=== PATIENT | female | born 1930 | race Caucasian/White ===

== ENCOUNTER 2016-07-03 10:17 | Inpatient (IN) | payer MEDICARE ==
[2016-07-03 10:49] LABS: ABSOLUTE NEUTROPHIL COUNT 3.2 K/mm3 (1.8-7.7); BASO % 0.2 % (0.2-1.0); EOS % 0.8 % (0.9-2.9); HEMATOCRIT 28.8 % (37.0-47.0); HEMOGLOBIN 10.5 gm/l (12.0-16.0); IMM NEUT% 0.4 % (0-1); LYMPH # 1.5 (1.0-4.8); MEAN CELL VOLUME 85.2 fl (81.0-99.0); MEAN CORPUSCULAR HEMOGLOBIN 31.1 pg (27.0-31.0); MEAN CORPUSCULAR HGB CONC 36.5 g/dl (33.0-37.0); MEAN PLATELET VOLUME 10.2 fl (7.4-10.4); MONO # 0.4 (0.0-0.8); MONO % 7.7 % (4-12); NEUT % 61.9 % (43-75); PLATELET COUNT 237 K/mm3 (130-400); RED CELL DISTRIBUTION WIDTH 11.8 % (11.5-14.5)
[2016-07-03 11:09] LABS: ALBUMIN 3.6 gm/dL (3.5-5.7); CALCIUM 7.9 mg/dL (8.6-10.3)
[2016-07-03 11:32] LABS: PH,URINE 6.5 (5.0-8.0); SPECIFIC GRAVITY 1.015 (1.001-1.030); URINE BILIRUBIN NEGATIVE (NEGATIVE); URINE BLOOD 3+ (NEGATIVE); URINE GLUCOSE (UA) NEGATIVE (NEGATIVE); URINE LEUKOCYTE ESTERASE TRACE (NEGATIVE); URINE NITRITE POSITIVE (NEGATIVE); URINE PROTEIN 1+ (NEGATIVE); URINE UROBILINOGEN NORMAL (0-1 mg/dl)
[2016-07-03 11:33] LABS: URINE APPEARANCE HAZY; URINE COLOR YELLOW
[2016-07-03 11:45] LABS: URINE BACTERIA FEW; URINE WBC 0-2 /hpf
[2016-07-03] MEDS ORDERED: [UNRECOGNIZED DRUG - OTHER] IV SCH (14:00)
[2016-07-03] MEDS ORDERED: D5NS with 20mEq KCL 1,000 ML IV SCH (14:00)
[2016-07-03] MEDS ORDERED: PUMP TUBING ONE ×2 (14:19→15:13)
[2016-07-03] MEDS ORDERED: SODIUM CHLORIDE 0.9% FLUSH 10 ML ONE (14:36)
[2016-07-03] MEDS ORDERED: IV START KIT ONE (14:36)
[2016-07-03] MEDS ORDERED: BLISTEX LIPSTICK 1 EACH TP PRN (15:27)
[2016-07-03] MEDS ORDERED: SODIUM CHLORIDE 0.9% 100 ML IV PRN (15:27)
[2016-07-03] MEDS ORDERED: MAGNESIUM HYDROXIDE 30 ML UDCUP PO PRN (15:27)
[2016-07-03] MEDS ORDERED: ACETAMINOPHEN 325 MG TABLET PO PRN (15:27)
[2016-07-03] MEDS ORDERED: MENTHOL/CETYLPYRD 1 EACH LOZENGE PO PRN (15:27)
[2016-07-03] MEDS ORDERED: BISACODYL 5 MG TABLET.EC PO PRN (15:27)
[2016-07-03] MEDS ORDERED: BISACODYL 10 MG SUP PR PRN (15:27)
[2016-07-03] MEDS ORDERED: MAGNESIUM HYDROXIDE/AL HYDROX 30 ML UDCUP PO PRN (15:42)
[2016-07-03] MEDS ORDERED: CYCLOBENZAPRINE HCL 10 MG TABLET PO PRN (15:42)
[2016-07-03] MEDS ORDERED: ERYTHROMYCIN OPHTH OINT 0.5% 1 APPLIC/TUBE OU PRN (15:45)
[2016-07-03 15:49] VITALS: BMI 23.9
[2016-07-03] MEDS: ENOXAPARIN SODIUM 40 MG/0.4 ML SYRINGE SUB-Q SCH (16:26)
[2016-07-03] MEDS: LEVOFLOXACIN 250MG/D5W 50ML 250 MG in Premix (D5W) 50 ml 1 EACH IV SCH (16:26)
[2016-07-03] MEDS ORDERED: [UNRECOGNIZED DRUG - OTHER] PO SCH (17:00)
[2016-07-03] MEDS ORDERED: ATROP PO SCH (17:00)
--- NOTE | 2016-07-03 17:37 | HP ---
GADIEL FUNEZ [id number] DATE OF ADMISSION: July 03, 2016 CHIEF COMPLAINT: Weakness. HISTORY OF PRESENT ILLNESS: The patient is an 86-year-old female with a history of recurrent hyponatremia who has some difficulty giving history. She recently she was seen last for some decreased strength, weakness, and possible urinary tract infection. She had a urinalysis done which ultimately showed Klebsiella pneumoniae and she had a sodium done which showed a result of 132 on June 30, 2016. She had undergone a previous chest CT as well on June 26, 2016 showing stable appearance of the lungs compared to January 08, 2016, a 6.1 mm sub-solid nodule in the right lower lobe along with bilateral pulmonary scarring. Differential diagnoses include low-grade inflammatory lesion versus less likely adenocarcinoma. Interval resolution of bilateral pleural effusions and osteoporosis with old compression fractures of T11 and T 7. She was started on Bactrim this week which coincidentally she had been on prior to a previous hospitalization for hyponatremia. She experienced worsened weakness, so was brought to [facility] where her sodium was noted to be 113, a marked drop from 132 on June 30, 2016, three days prior. She has had several previous hospitalizations for hyponatremia, last being as low as 110 on January 08, 2016. 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 She is unable to swallow the pills whole, so takes them with applesauce and does not care for the taste of this. PAST MEDICAL HISTORY: Remarkable for: 1. Hypothyroidism. 2. Pituitary adenoma with partial removal in 2004. 3. History of glaucoma. 4. Macular degeneration. 5. Chronic intermittent diarrhea with intolerance to many foods. 6. Dyslipidemia. 7. Hyponatremia, episodic. 8. Scalp lacerations in the past in the summer of 2015. 9. History of recurrent urinary retention with Angelo placed in the summer. She was supposed to see Dr. Darnell for a voiding trial, but so far has continued with chronic catheterization. 10. Previous T11 and T7 compression fractures. 11. She also describes having some wrist swelling last month and had x-ray and ultrasound and CT which did not give an answer regarding this. PAST SURGICAL HISTORY: Remarkable for: 1. L5 laminectomy. 2. Cholecystectomy. 3. Left knee arthroplasty. She reports she now wishes she had the other knee done as well. 4. Pituitary tumor surgery in 2004. 5. Cataract surgery. 6. Macular degeneration. 7. Appendectomy. 8. Skin cancers. ALLERGIES: 1. AMOXICILLIN. 2. PENICILLIN. 3. MULTIPLE FOOD ALLERGIES INCLUDING CORN AND CORN STARCH, PEANUTS, SOY, TREE NUTS, WHEAT, DAIRY AND SESAME SEEDS. 4. POSSIBLY SULFA ANTIBIOTICS. MEDICATIONS: 1. Acetaminophen 650 mg orally every six hours as needed. 2. Alendronate 70 mg orally weekly although she states she has not taken this more recently. 3. Amphojel as needed. 4. Combigan eyedrops one drop in both eyes twice daily. 5. Calcium carbonate 500 mg orally twice daily. 6. Cevimeline 30 mg orally twice daily. 7. Cholestyramine 4 gr orally twice daily. 8. Flexeril 5 mg orally three times daily as needed. 9. Lomotil one pill four times daily as needed. 10. Erythromycin optic ointment 0.5% as needed. 11. Xalatan 0.005% one drop both eyes at bedtime. 12. Levothyroxine 25 mcg orally in the morning. 13. Lovastatin 20 mg orally at bedtime. 14. Melatonin 10 mg orally at bedtime. 15. Move-Free one tablet orally daily. 16. Pilocarpine one to two drops both eyes three times daily. 17. Sodium chloride 2 gr orally daily. 18. She has been on Bactrim just recently. SOCIAL HISTORY: She lives independently at [facility]. She has a Home Health nurse who checks on her catheter twice a week. Granddaughter works at the [employer]. She is . DO NOT RESUSCITATE status. No smoking, no drinking. She is Yazidi but is currently not going to [facility] due to difficulty getting around. FAMILY HISTORY: Father at age 82 of cancer. Mom at 36 of childbirth. REVIEW OF SYSTEMS: Eyes have been okay. She does have some dry mouth and takes medicine for this. Ears, have been okay. Nose has been okay. Mouth, okay. Teeth are okay. Neck, okay. She has had a scab like irritation that has been persisting on the top of her scalp since last summer with crusting noted. She has had some stiffness and soreness of her neck. Her lungs have been okay. She had a CT done which had shown a possible lung mass, but it appears to be stable from previous on the CT done June 26, 2016. Heart, no complaints. Stomach, she has nausea and gagging and frequent loose stools. She was diagnosed with a urinary tract infection recently which had shown Klebsiella pneumoniae sensitive to most drugs tested. She notes her knee hurts. Her arms have been okay. She has had just some general weakness. She had some memory difficulties and reports she can forget where she was when she was talking. PHYSICAL EXAM: GENERAL: Slightly tired appearing female, slightly pale, cooperative and pleasant. Her family reports that she is not as bad as she had been the last time she was hospitalized here. VITAL SIGNS: Her weight is 53.7 kilogram. Temperature 97.9, pulse 63, blood pressure 141/67, respirations 17, 95% saturations on room air. HEAD: Head is normocephalic. Two different areas of some dried mattering and scab-like formation suggestive of some chronic irritation on the scalp. EYES: Are unremarkable. EARS: Are normal bilaterally. NOSE: Is normal. MOUTH: Oropharynx is unremarkable. NECK: Is supple, no adenopathy or jugular venous distension noted. LUNGS: Generally clear to auscultation bilaterally. HEART: Regular rate and rhythm. ABDOMEN: Soft, bowel sounds are normal. There is no rebound or tenderness, no masses. Mild kyphosis noted. Abdomen is nontender. BREAST: Exam is deferred. GENITOURINARY: Exam is deferred. EXTREMITIES: Lower extremities without significant edema. Feet grossly unremarkable. Wrists are unremarkable. NEUROLOGIC: Cranial nerves are intact and symmetric. She is somewhat slow to follow commands such as finger to nose. Gait is not tested. She is oriented to within one day guessing July 04, 2016 and oriented to location. Speech is otherwise fluent. LABORATORY: Her labs show a white blood cell count of 5.2, hemoglobin 10.5, platelets 237. Chemistry profile, sodium 113 which is down from just three days ago when it was 132 on June 30, 2016. Potassium is 3.5, chloride 81, CO2 28, BUN 12, anion gap 8, creatinine 0.8, glucose 85, calcium 7.9, bilirubin 0.8, AST 39, ALT 35, alkaline phosphatase 84, troponin less than 0.01, albumin 3.6, globulin 3.6, lipase 36. Urinalysis shows 1+ protein, 2+ ketones, 3+ blood, 5 to 10 red cells, 0 to 2 white cells, 1 to 3 epithelial cells, few bacteria. IMAGING: Done at this time, none. The CT of the chest done on June 26, 2016 was as above. ELECTROCARDIOGRAM: Electrocardiogram shows sinus versus junctional bradycardia, 56 beats per minute, left anterior fascicular block suggested with leftward axis. QRS is 121, QTc is 467, axis is -50. Left ventricular hypertrophy suggested. ASSESSMENT AND PLAN: 1. Severe symptomatic hyponatremia, acute, with a sodium 113 today when it had been 132 on June 30, 2016. It had also been previously checked in mid May at 133. She has had previous testing for cortisol which was normal. Previous TSH was normal. Volume appears to be euvolemic. Patient has also had evaluation at [facility] previously and did not have any other addressable causes. Patient had been managed on oral sodium supplementation but had been tapering down on this. She does have a finding on the CT of her chest but this has been stable. She previously had Bactrim associated with this which would raise this as a consideration. We will be giving a dose of hypertonic saline at this time and closely monitoring. Anticipate resumption of her previous dose of oral sodium chloride and will be holding on desmopressin at this time, but if significant diuresis, will consider adding this. 2. Urinary tract infection with Klebsiella pneumoniae sensitive to most drugs tested. Anticipate use of Levaquin. 3. History of urinary retention. We will try a voiding trial later today, and replace the catheter if need be. 4. Abnormal CT of chest, appearing stable. Uncertain role in hyponatremia, but some lung masses can be associated with hyponatremia. 5. Hypothyroidism. Continue on levothyroxine. 6. With scalp crusting, suspect low-grade infection. Consider use of oil to help relieve crusting and evaluate underlying skin. 7. History of previous pituitary mass status post surgery, stable on CT done previously. Last CT of head done December 11, 2015. 8. DO NOT RESUSCITATE status. This is ordered. 9. Venous thrombosis prophylaxis. Anticipate the use of Lovenox. 10. History of chronic diarrhea of many food allergies, not otherwise addressed today. cc: Bhaskar Sebastien Bal M.D.
[2016-07-03] MEDS: ONDANSETRON 4 MG/2ML 2 ML VIAL IV PRN (19:08)
[2016-07-03] MEDS: SODIUM CHLORIDE 1 G TABLET PO SCH ×2 (19:29→21:45)
[2016-07-03] MEDS ORDERED: [UNRECOGNIZED DRUG - OTHER] PO PRN (19:39)
[2016-07-03] MEDS ORDERED: ATROP PO PRN (19:39)
[2016-07-03] MEDS: CALCIUM CARBONATE 500 MG TAB.CHEW PO SCH (21:44)
[2016-07-03] MEDS: CEVIMELINE HCL 30 MG CAPSULE PO SCH (21:44)
[2016-07-03] MEDS: MELATONIN 3 MG TABLET PO SCH (21:45)
[2016-07-03] MEDS: LOVASTATIN 20 MG TABLET PO SCH (21:45)
[2016-07-03] MEDS: DOCUSATE SODIUM 100 MG CAPSULE PO SCH (21:49)
[2016-07-03 21:54] LABS: I-STAT CREATININE 0.8 mg/dL (0.6-1.3)
[2016-07-03] MEDS: Brimonidine Tartrate/Timolol [Combigan 0.2%-0.5% Eye Drops] OU SCH (22:01)
[2016-07-03] MEDS: PILOCARPINE HCL OU SCH (22:20)
[2016-07-03] MEDS: LATANOPROST 0.005% 50 GTTS/2.5 ML BOT SOLN.DROP OU SCH (22:48)
[2016-07-03 23:08] LABS: CALCIUM 8.1 mg/dL (8.6-10.3)
[2016-07-04 00:51] LABS: CALCIUM 8.1 mg/dL (8.6-10.3)
[2016-07-04 05:45] LABS: ABSOLUTE NEUTROPHIL COUNT 3.8 K/mm3 (1.8-7.7); BASO % 0.5 % (0.2-1.0); EOS # 0.1 (0.0-0.5); EOS % 0.9 % (0.9-2.9); HEMATOCRIT 31.5 % (37.0-47.0); HEMOGLOBIN 11.3 gm/l (12.0-16.0); IMM NEUT% 0.5 % (0-1); LYMPH # 1.7 (1.0-4.8); LYMPH % 26.8 % (15-45); MEAN CELL VOLUME 84.7 fl (81.0-99.0); MEAN CORPUSCULAR HEMOGLOBIN 30.4 pg (27.0-31.0); MEAN CORPUSCULAR HGB CONC 35.9 g/dl (33.0-37.0); MEAN PLATELET VOLUME 11.4 fl (7.4-10.4); MONO # 0.8 (0.0-0.8); MONO % 12.2 % (4-12); NEUT % 59.1 % (43-75); RED CELL DISTRIBUTION WIDTH 11.9 % (11.5-14.5)
[2016-07-04 05:57] LABS: CALCIUM 8.6 mg/dL (8.6-10.3)
[2016-07-04 06:46] LABS: PLATELET COUNT 166 K/mm3 (130-400)
[2016-07-04] MEDS: LEVOTHYROXINE SODIUM 25 MCG TABLET PO SCH (07:46)
[2016-07-04] MEDS ORDERED: MOVE FREE PO SCH (09:00)
[2016-07-04] MEDS: CEVIMELINE HCL 30 MG CAPSULE PO SCH ×2 (10:05→21:10)
[2016-07-04] MEDS: DOCUSATE SODIUM 100 MG CAPSULE PO SCH ×2 (10:06→21:07)
[2016-07-04] MEDS: CALCIUM CARBONATE 500 MG TAB.CHEW PO SCH ×2 (10:07→21:07)
[2016-07-04] MEDS: Brimonidine Tartrate/Timolol [Combigan 0.2%-0.5% Eye Drops] OU SCH ×2 (10:08→21:06)
[2016-07-04] MEDS: PILOCARPINE HCL OU SCH ×3 (10:08→21:05)
--- NOTE | 2016-07-04 13:22 | PDOC43 ---
- Subjective Chief Complaint: weakness Patient reports feeling better today. Did eat a little. Walked some with PT, did ok, 40-50'. Required replacement of catheter due to retention (700 ml on PVR ). - Objective Vital Signs Temperature 98.1 F 07/04/16 07:32 Pulse Rate 61 07/04/16 11:27 Respiratory Rate 18 07/04/16 11:28 Blood Pressure 152/60 07/04/16 11:27 O2 Saturation by Pulse Oximetry 96 07/04/16 11:27 Oxygen Delivery Method Room Air Oxygen Flow Rate 0 Vital Signs Last 12 Hours Temp Pulse Resp BP Pulse Ox 07/04/16 11:28 18 07/04/16 11:27 61 18 152/60 96 07/04/16 07:32 98.1 F 58 16 147/60 98 07/04/16 07:30 16 07/04/16 05:00 15 07/04/16 03:04 52 15 122/43 96 07/04/16 02:39 51 14 104/46 98 07/04/16 01:00 20 Intake and Output 07/02/16 07/03/16 07/04/16 23:59 23:59 23:59 Intake Total 794 120 Output Total 320 775 Balance 474 -655 General: Alert, Cooperative, No Acute Distress HEENT: Atraumatic Lungs: Clear to Auscultation Bilaterally, Normal Air Movement Cardiovascular: Other (mostly RRR, sinus matias, PACs.) Abdomen: Soft, Normal Bowel Sounds, Non-Distended Extremities: No Edema Skin: Normal Color (seems better today.) Neurological: Normal Speech (better, more alert.) Psych/Mental Status: Normal Affect Laboratory 07/04/16 05:15 07/04/16 05:15 07/04/16 07/04/16 07/03/16 05:15 00:03 21:20 RBC 3.72 L VBG Total CO2 20 L Calcium 8.1 L 8.1 L Ionized Calcium 1.09 L Laboratory Tests 07/03/16 07/03/16 07/04/16 10:35 21:20 00:03 Sodium 113 L* D 114 L* 116 L* 07/04/16 05:15 Sodium 118 L* Current Medications: Current meds reviewed in EMR. Active Medications Acetaminophen (Tylenol) 650 mg PO Q6H PRN PRN Reason: Pain or Temperature > 100.5 F Al Hydroxide/Mg Hydroxide (Maalox) 15 - 30 ml PO Q4H PRN PRN Reason: GI upset Benzocaine/Menthol (Cepacol) 1 each PO PRN PRN PRN Reason: Sore Throat Bisacodyl (Dulcolax) 10 mg [place] DAILY PRN PRN Reason: Constipation Bisacodyl (Dulcolax) 5 mg PO DAILY PRN PRN Reason: Constipation Calcium Carbonate/Glycine (Tums) 500 mg PO BID [facility] Last Admin: 07/04/16 10:07 Dose: 500 mg Cevimeline HCl (Evoxac) 30 mg PO BID [facility] Last Admin: 07/04/16 10:05 Dose: Not Given Cyclobenzaprine HCl (Flexeril) 5 mg PO TID PRN PRN Reason: Muscle spasm Diphenoxylate HCl/Atropine (Lomotil) 1 each PO QID PRN PRN Reason: Diarrhea Docusate Sodium (Colace) 100 mg PO BID [facility] Last Admin: 07/04/16 10:06 Dose: Not Given Enoxaparin Sodium (Lovenox) 40 mg SUB-Q Q24H [facility] Last Admin: 07/03/16 16:26 Dose: 40 mg Erythromycin (Erythromycin Ophth Oint 0.5%) 1 applic OU PRN PRN Sodium Chloride (Sodium Chloride 0.9%) 100 mls @ 25 mls/hr IV PRN PRN PRN Reason: Flush Levofloxacin/Dextrose 250 mg/ (Premix (D5W) 50 ml) 50 mls @ 50 mls/hr IV Q24H [facility] Last Admin: 07/03/16 16:26 Dose: 50 mls/hr Latanoprost (Xalatan) 1 gtts OU BEDTIME [facility] Last Admin: 07/03/16 22:48 Dose: 1 gtts Levothyroxine Sodium (Levothroid) 25 mcg PO QAMAC [facility] Last Admin: 07/04/16 07:46 Dose: 25 mcg Lovastatin (Mevacor) 20 mg PO BEDTIME [facility] Last Admin: 07/03/16 21:45 Dose: 20 mg Melatonin (Melatonin) 9 mg PO BEDTIME [facility] Last Admin: 07/03/16 21:45 Dose: 9 mg Miscellaneous (Brimonidine Tartrate/Timolol [Combigan 0.2%-0.5% Eye Drops]) 1 gtts OU BID [facility] Last Admin: 07/04/16 10:08 Dose: 1 gtts Miscellaneous (Move Free) 1 tab PO DAILY [facility] Miscellaneous (Pilocarpine Hcl [Isopto Carpine 1% Ophth Solution]) 1 - 2 gtts OU TID [facility] Last Admin: 07/04/16 10:08 Dose: 1 gtts Ondansetron HCl (Zofran) 4 mg IV Q4H PRN PRN Reason: Nausea/Vomiting Last Admin: 07/03/16 19:08 Dose: 4 mg Petrolatum/Paraffin/Mineral Oil (Blistex) 1 each TP PRN PRN PRN Reason: Dry and/or chapped lips Sodium Chloride (Normal Saline 10ml Flush) 10 ml IV Q8HR [facility] Last Admin: 07/04/16 10:06 Dose: 10 ml Sodium Chloride (Normal Saline 10ml Flush) 10 ml IV PRN PRN Last Admin: 07/03/16 22:48 Dose: 10 ml - Problems: Assessment/Plan (1) Hyponatremia Status: Acute Assessment/Plan: Recurrent, 130 Sunday ->113 yest ->118 today Got 50 ml of 3% conc saline. Continue on PO NaCl, appreciate PT/OT (2) Anemia Qualifiers: Anemia type: unspecified type Qualifier Code: (D64.9) Anemia, unspecified Status: Suspected Assessment/Plan: Check iron levels. (3) UTI (urinary tract infection), bacterial Status: Acute Assessment/Plan: On Levaquin for Citrobacter and Klebsiella, both should be sensitive. Previous tx with Bactrim was associated with at least one other episode of hyponatremia. (4) Urinary retention Status: Acute Assessment/Plan: Chronic Angelo, changed. VTE Prophylaxis: enoxaparin Disposition: anticipate going to med/surg today.
[2016-07-04] MEDS ORDERED: PUMP TUBING ONE (15:32)
[2016-07-04] MEDS: SODIUM CHLORIDE 1 G TABLET PO SCH ×3 (15:52→23:21)
[2016-07-04] MEDS: LEVOFLOXACIN 250MG/D5W 50ML 250 MG in Premix (D5W) 50 ml 1 EACH IV SCH (15:52)
[2016-07-04] MEDS: ENOXAPARIN SODIUM 40 MG/0.4 ML SYRINGE SUB-Q SCH (15:53)
[2016-07-04 17:38] LABS: ABSOLUTE NEUTROPHIL COUNT 3.6 K/mm3 (1.8-7.7); BASO % 0.3 % (0.2-1.0); EOS # 0.1 (0.0-0.5); EOS % 1.2 % (0.9-2.9); HEMATOCRIT 34.2 % (37.0-47.0); HEMOGLOBIN 11.7 gm/l (12.0-16.0); IMM NEUT% 0.5 % (0-1); LYMPH # 1.4 (1.0-4.8); LYMPH % 23.4 % (15-45); MEAN CELL VOLUME 88.6 fl (81.0-99.0); MEAN CORPUSCULAR HEMOGLOBIN 30.3 pg (27.0-31.0); MEAN CORPUSCULAR HGB CONC 34.2 g/dl (33.0-37.0); MEAN PLATELET VOLUME 10.9 fl (7.4-10.4); MONO # 0.7 (0.0-0.8); MONO % 11.8 % (4-12); NEUT % 62.8 % (43-75); PLATELET COUNT 175 K/mm3 (130-400); RED CELL DISTRIBUTION WIDTH 12.2 % (11.5-14.5)
[2016-07-04 18:48] LABS: CALCIUM 8.6 mg/dL (8.6-10.3)
[2016-07-04] MEDS: LOVASTATIN 20 MG TABLET PO SCH (21:07)
[2016-07-04] MEDS: LATANOPROST 0.005% 50 GTTS/2.5 ML BOT SOLN.DROP OU SCH (21:09)
[2016-07-04] MEDS: MELATONIN 3 MG TABLET PO SCH (22:12)
[2016-07-04] MEDS: ONDANSETRON 4 MG/2ML 2 ML VIAL IV PRN (23:11)
[2016-07-05 06:14] LABS: ABSOLUTE NEUTROPHIL COUNT 3.7 K/mm3 (1.8-7.7); BASO % 0.2 % (0.2-1.0); EOS % 0.4 % (0.9-2.9); HEMATOCRIT 34.9 % (37.0-47.0); HEMOGLOBIN 11.9 gm/l (12.0-16.0); IMM NEUT% 0.4 % (0-1); LYMPH # 0.9 (1.0-4.8); MEAN CORPUSCULAR HEMOGLOBIN 30.4 pg (27.0-31.0); MEAN CORPUSCULAR HGB CONC 34.1 g/dl (33.0-37.0); MEAN PLATELET VOLUME 10.6 fl (7.4-10.4); MONO # 0.6 (0.0-0.8); MONO % 11.3 % (4-12); NEUT % 70.7 % (43-75); PLATELET COUNT 206 K/mm3 (130-400); RED CELL DISTRIBUTION WIDTH 12.6 % (11.5-14.5)
[2016-07-05 06:28] LABS: IRON 80 ug/dL (50-212); TOTAL IRON BINDING CAPACITY 256 ug/dL (261-478); TRANSFERRIN 183 mg/dL (203-362)
[2016-07-05 06:30] LABS: CALCIUM 8.9 mg/dL (8.6-10.3)
[2016-07-05] MEDS: LEVOTHYROXINE SODIUM 25 MCG TABLET PO SCH (07:35)
[2016-07-05] MEDS: SODIUM CHLORIDE 1 G TABLET PO SCH ×4 (07:37→20:12)
[2016-07-05] MEDS: CALCIUM CARBONATE 500 MG TAB.CHEW PO SCH ×2 (08:38→20:12)
[2016-07-05] MEDS: DOCUSATE SODIUM 100 MG CAPSULE PO SCH ×2 (08:38→20:13)
[2016-07-05] MEDS: Brimonidine Tartrate/Timolol [Combigan 0.2%-0.5% Eye Drops] OU SCH ×2 (08:42→20:11)
[2016-07-05] MEDS: PILOCARPINE HCL OU SCH ×3 (08:42→20:11)
[2016-07-05] MEDS: CEVIMELINE HCL 30 MG CAPSULE PO SCH (10:21)
[2016-07-05] MEDS ORDERED: CEVIMELINE HCL 30 MG CAPSULE PO PRN (10:46)
[2016-07-05] MEDS: ENOXAPARIN SODIUM 40 MG/0.4 ML SYRINGE SUB-Q SCH (14:53)
[2016-07-05] MEDS: LEVOFLOXACIN 250 MG TABLET PO SCH ×2 (14:53→16:53)
[2016-07-05] MEDS: LATANOPROST 0.005% 50 GTTS/2.5 ML BOT SOLN.DROP OU SCH (20:11)
[2016-07-05] MEDS: LOVASTATIN 20 MG TABLET PO SCH (20:12)
[2016-07-05] MEDS: MELATONIN 3 MG TABLET PO SCH (20:31)
[2016-07-06] MEDS: SODIUM CHLORIDE 1 G TABLET PO SCH ×3 (00:10→11:56)
[2016-07-06] MEDS: LEVOTHYROXINE SODIUM 25 MCG TABLET PO SCH (07:28)
[2016-07-06] MEDS ORDERED: LEVOFLOXACIN 250 MG TABLET PO SCH (09:00)
[2016-07-06] MEDS: DOCUSATE SODIUM 100 MG CAPSULE PO SCH (09:22)
[2016-07-06] MEDS: CALCIUM CARBONATE 500 MG TAB.CHEW PO SCH (09:23)
[2016-07-06] MEDS: PILOCARPINE HCL OU SCH ×2 (09:27→14:58)
[2016-07-06] MEDS: Brimonidine Tartrate/Timolol [Combigan 0.2%-0.5% Eye Drops] OU SCH (09:28)
--- NOTE | 2016-07-06 10:45 | PDOC43 ---
- Subjective Chief Complaint: weakness Patient reports some sweating, possible confusion related to her dry mouth medicine last night. Recalls thinking that she was wandering around the hospital yesterday. Otherwise, strength doing better, eating doing better. Would be interested in going [facility] tomorrow [facility]. - Objective Vital Signs Temperature 97.8 F 07/05/16 06:58 Pulse Rate 55 07/05/16 06:58 Respiratory Rate 16 07/05/16 07:39 Blood Pressure 115/54 07/05/16 06:58 O2 Saturation by Pulse Oximetry 99 07/05/16 06:58 Oxygen Delivery Method Room Air Oxygen Flow Rate 0 Active Medications Acetaminophen (Tylenol) 650 mg PO Q6H PRN PRN Reason: Pain or Temperature > 100.5 F Al Hydroxide/Mg Hydroxide (Maalox) 15 - 30 ml PO Q4H PRN PRN Reason: GI upset Benzocaine/Menthol (Cepacol) 1 each PO PRN PRN PRN Reason: Sore Throat Bisacodyl (Dulcolax) 10 mg [place] DAILY PRN PRN Reason: Constipation Bisacodyl (Dulcolax) 5 mg PO DAILY PRN PRN Reason: Constipation Calcium Carbonate/Glycine (Tums) 500 mg PO BID [facility] Last Admin: 07/05/16 08:38 Dose: 500 mg Cevimeline HCl (Evoxac) 30 mg PO BID [facility] Last Admin: 07/05/16 10:21 Dose: Not Given Cyclobenzaprine HCl (Flexeril) 5 mg PO TID PRN PRN Reason: Muscle spasm Last Admin: 07/04/16 23:12 Dose: 5 mg Diphenoxylate HCl/Atropine (Lomotil) 1 each PO QID PRN PRN Reason: Diarrhea Last Admin: 07/04/16 21:07 Dose: 1 each Docusate Sodium (Colace) 100 mg PO BID [facility] Last Admin: 07/05/16 08:38 Dose: 100 mg Enoxaparin Sodium (Lovenox) 40 mg SUB-Q Q24H [facility] Last Admin: 07/04/16 15:53 Dose: 40 mg Erythromycin (Erythromycin Ophth Oint 0.5%) 1 applic OU PRN PRN Sodium Chloride (Sodium Chloride 0.9%) 100 mls @ 25 mls/hr IV PRN PRN PRN Reason: Flush Last Admin: 07/04/16 15:52 Dose: 25 mls/hr Levofloxacin/Dextrose 250 mg/ (Premix (D5W) 50 ml) 50 mls @ 50 mls/hr IV Q24H [facility] Last Admin: 07/04/16 15:52 Dose: 50 mls/hr Latanoprost (Xalatan) 1 gtts OU BEDTIME [facility] Last Admin: 07/04/16 21:09 Dose: 1 gtts Levothyroxine Sodium (Levothroid) 25 mcg PO QAMAC [facility] Last Admin: 07/05/16 07:35 Dose: 25 mcg Lovastatin (Mevacor) 20 mg PO BEDTIME [facility] Last Admin: 07/04/16 21:07 Dose: 20 mg Melatonin (Melatonin) 9 mg PO BEDTIME [facility] Last Admin: 07/04/16 22:12 Dose: 9 mg Miscellaneous (Brimonidine Tartrate/Timolol [Combigan 0.2%-0.5% Eye Drops]) 1 gtts OU BID [facility] Last Admin: 07/05/16 08:42 Dose: 1 gtts Miscellaneous (Pilocarpine Hcl [Isopto Carpine 1% Ophth Solution]) 1 - 2 gtts OU TID [facility] Last Admin: 07/05/16 08:42 Dose: 1 gtts Ondansetron HCl (Zofran) 4 mg IV Q4H PRN PRN Reason: Nausea/Vomiting Last Admin: 07/04/16 23:11 Dose: 4 mg Petrolatum/Paraffin/Mineral Oil (Blistex) 1 each TP PRN PRN PRN Reason: Dry and/or chapped lips Last Admin: 07/04/16 22:12 Dose: 1 applic Sodium Chloride (Normal Saline 10ml Flush) 10 ml IV Q8HR [facility] Last Admin: 07/05/16 08:39 Dose: 10 ml Sodium Chloride (Normal Saline 10ml Flush) 10 ml IV PRN PRN Last Admin: 07/04/16 23:11 Dose: 10 ml Sodium Chloride (Sodium Chloride) 1 g PO PID [facility] Last Admin: 07/05/16 07:37 Dose: 1 g Intake and Output 07/03/16 07/04/16 07/05/16 23:59 23:59 23:59 Intake Total 794 395 430 Output Total 320 7457 900 Balance 474 -1630 -470 General: Alert, Cooperative, No Acute Distress Lungs: Clear to Auscultation Bilaterally Cardiovascular: Regular Rate and Rhythm Abdomen: Soft, Normal Bowel Sounds, Non-Distended Extremities: No Edema, No Tenderness Skin: Normal Color Neurological: Normal Speech Psych/Mental Status: Normal Affect, Normal Mood Laboratory 07/05/16 05:30 07/05/16 05:30 07/05/16 07/04/16 07/04/16 05:30 17:30 05:30 RBC 3.92 L 3.86 L TIBC 256 L Transferrin 183 L Laboratory Tests 07/03/16 07/03/16 07/04/16 10:35 21:20 00:03 Sodium 113 L* D 114 L* 116 L* 07/04/16 07/04/16 07/05/16 05:15 17:30 05:30 Sodium 118 L* 121 L 126 L Current Medications: Current meds reviewed in EMR. Active Medications Acetaminophen (Tylenol) 650 mg PO Q6H PRN PRN Reason: Pain or Temperature > 100.5 F Al Hydroxide/Mg Hydroxide (Maalox) 15 - 30 ml PO Q4H PRN PRN Reason: GI upset Benzocaine/Menthol (Cepacol) 1 each PO PRN PRN PRN Reason: Sore Throat Bisacodyl (Dulcolax) 10 mg [place] DAILY PRN PRN Reason: Constipation Bisacodyl (Dulcolax) 5 mg PO DAILY PRN PRN Reason: Constipation Calcium Carbonate/Glycine (Tums) 500 mg PO BID [facility] Last Admin: 07/05/16 08:38 Dose: 500 mg Cevimeline HCl (Evoxac) 30 mg PO BID [facility] Last Admin: 07/05/16 10:21 Dose: Not Given Cyclobenzaprine HCl (Flexeril) 5 mg PO TID PRN PRN Reason: Muscle spasm Last Admin: 07/04/16 23:12 Dose: 5 mg Diphenoxylate HCl/Atropine (Lomotil) 1 each PO QID PRN PRN Reason: Diarrhea Last Admin: 07/04/16 21:07 Dose: 1 each Docusate Sodium (Colace) 100 mg PO BID [facility] Last Admin: 07/05/16 08:38 Dose: 100 mg Enoxaparin Sodium (Lovenox) 40 mg SUB-Q Q24H [facility] Last Admin: 07/04/16 15:53 Dose: 40 mg Erythromycin (Erythromycin Ophth Oint 0.5%) 1 applic OU PRN PRN Sodium Chloride (Sodium Chloride 0.9%) 100 mls @ 25 mls/hr IV PRN PRN PRN Reason: Flush Last Admin: 07/04/16 15:52 Dose: 25 mls/hr Levofloxacin/Dextrose 250 mg/ (Premix (D5W) 50 ml) 50 mls @ 50 mls/hr IV Q24H [facility] Last Admin: 07/04/16 15:52 Dose: 50 mls/hr Latanoprost (Xalatan) 1 gtts OU BEDTIME [facility] Last Admin: 07/04/16 21:09 Dose: 1 gtts Levothyroxine Sodium (Levothroid) 25 mcg PO QAMAC [facility] Last Admin: 07/05/16 07:35 Dose: 25 mcg Lovastatin (Mevacor) 20 mg PO BEDTIME [facility] Last Admin: 07/04/16 21:07 Dose: 20 mg Melatonin (Melatonin) 9 mg PO BEDTIME [facility] Last Admin: 07/04/16 22:12 Dose: 9 mg Miscellaneous (Brimonidine Tartrate/Timolol [Combigan 0.2%-0.5% Eye Drops]) 1 gtts OU BID [facility] Last Admin: 07/05/16 08:42 Dose: 1 gtts Miscellaneous (Pilocarpine Hcl [Isopto Carpine 1% Ophth Solution]) 1 - 2 gtts OU TID [facility] Last Admin: 07/05/16 08:42 Dose: 1 gtts Ondansetron HCl (Zofran) 4 mg IV Q4H PRN PRN Reason: Nausea/Vomiting Last Admin: 07/04/16 23:11 Dose: 4 mg Petrolatum/Paraffin/Mineral Oil (Blistex) 1 each TP PRN PRN PRN Reason: Dry and/or chapped lips Last Admin: 07/04/16 22:12 Dose: 1 applic Sodium Chloride (Normal Saline 10ml Flush) 10 ml IV Q8HR [facility] Last Admin: 07/05/16 08:39 Dose: 10 ml Sodium Chloride (Normal Saline 10ml Flush) 10 ml IV PRN PRN Last Admin: 07/04/16 23:11 Dose: 10 ml Sodium Chloride (Sodium Chloride) 1 g PO PID [facility] Last Admin: 07/05/16 07:37 Dose: 1 g - Problems: Assessment/Plan (1) Hyponatremia Status: Acute Assessment/Plan: Recurrent, 130 Sunday ->113 ->118 -> 126 today Continue on PO NaCl, appreciate PT/OT, anticipate DC to home 07/06 (2) Anemia Qualifiers: Anemia type: unspecified type Qualifier Code: (D64.9) Anemia, unspecified Status: Suspected Assessment/Plan: Iron levels not low (3) UTI (urinary tract infection), bacterial Status: Acute Assessment/Plan: On Levaquin for Citrobacter and Klebsiella, both should be sensitive. Previous tx with Bactrim was associated with at least one other episode of hyponatremia. (4) Urinary retention Status: Acute Assessment/Plan: Chronic Angelo, changed. Needs to continue on Angelo, PVR was high. (dx: urinary retention) (5) Abnormal chest CT Status: Suspected Assessment/Plan: RLL finding on CT earlier this month. Role in hyponatremia not clear, but to follow up per PCP/radiologist VTE Prophylaxis: enoxaparin Disposition: anticipate return to home/facility 07/06 if continues to do well.
--- NOTE | 2016-07-06 11:05 | DS ---
Brandee Ventura ADMIT DATE: 07/03/2016 DISCHARGE DATE: 07/06/2016 ADMISSION DIAGNOSES: 1. Recurrent hyponatremia felt to be secondary to Bactrim therapy in the context of chronic hyponatremia. 2. Urinary tract infection present on admission with Klebsiella erazo sensitive. 3. Chronic urinary retention. She has a chronic Angelo in place and is followed by urology. 4. Hypothyroidism at baseline. 5. 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 6. All the medical problems at baseline. DISCHARGE DIAGNOSES: 1. Recurrent hyponatremia felt to be secondary to Bactrim therapy in the context of chronic hyponatremia. 2. Urinary tract infection present on admission with Klebsiella erazo sensitive. 3. Chronic urinary retention. She has a chronic Angelo in place and is followed by urology. 4. Hypothyroidism at baseline. 5. 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 6. All the medical problems at baseline. ADMIT HISTORY AND PHYSICAL: Please see Dr. Nicole's note for details. Briefly, Ms. Ventura is an 86-year-old woman with chronic hyponatremia with a baseline sodium around 130, this was felt to be secondary to a reset osmostat. She does have a history of recurrent exacerbations of this. In the past it has been associated with Bactrim therapy as per the chart. She presented to our emergency department the day of admission with again symptoms consistent with hyponatremia. Emergency room workup found a sodium of 113. She had been started on Bactrim earlier this week for a recurrent urinary tract infection. She was admitted to the hospitalist service for further treatment. HOSPITAL COURSE: She was admitted. Bactrim was discontinued. She did receive some brief hypotonic saline with nice improvement in her hyponatremia. She continued with her usual sodium chloride tablets and supportive care otherwise. She had a slow steady improvement. By day of discharge her sodium was back to its baseline in the 130's. She was feeling well, worked well with physical therapy and occupational therapy and it was elected to discharge her home with plans for close outpatient follow up. Of note, we attempt a trial of removing her Angelo and she did have recurrent urinary retention so the Angelo was replaced with plans for continued follow up with Dr. Darnell of urology. DISCHARGE MEDICATIONS: Levaquin 250 mg by mouth daily x7 more days. All other medications as prior to admit as follows: 1. Sodium chloride tablets 1 gm by mouth twice daily. 2. Flexeril 5 mg by mouth twice daily. 3. Tylenol as needed. 4. Melatonin 10 mg by mouth at bedtime as needed. 5. Erythromycin ophthalmic ointment as prior to admit. 6. Cevimeline 30 mg by mouth twice daily. 7. Alendronate 70 mg by mouth every week. 8. Lomotil as needed. 9. Pilocarpine eye drops as prior to admit. 10. Xalatan eye drops as prior to admit. 11. Combigan eye drops as prior to admit. 12. Amphojel as prior to admit. 13. Lovastatin 20 mg by mouth at bedtime. 14. Cholestyramine 4 gm by mouth twice daily. 15. Move Free supplement 1 by mouth daily. 16. Levothyroxine 25 mcg by mouth every morning. 17. Calcium carbonate 500 mg by mouth twice daily. DISCHARGE FOLLOW UP: Will be Dr. Bhaskar Bal within the week for a recheck of her sodium and to follow up with Dr. Darnell of urology in the next one to two weeks for a recheck of her chronic urinary retention. JOB: [id number] CC: Dr. Bhaskar Darnell
[2016-07-06 12:22] VITALS: BP 109/59
[2016-07-06] MEDS: LEVOFLOXACIN 250 MG TABLET PO SCH (16:01)
[2016-07-06] MEDS: ENOXAPARIN SODIUM 40 MG/0.4 ML SYRINGE SUB-Q SCH (16:02)
== END 2016-07-06 16:45 | disposition home health service (06) | DRG 641 ==
LOC: ED 10:17 → ICU 12:02 → MS 07-04 17:38
PROVIDERS: ADMIT Family Medicine; ATTEND Family Medicine
DX: E87.1 Hypo-osmolality and hyponatremia (principal); N39.0 Urinary tract infection, site not specified; B96.1 Klebsiella pneumoniae [K. pneumoniae] as the cause of diseases classified elsewhere; E03.9 Hypothyroidism, unspecified; H35.30 Unspecified macular degeneration; R19.7 Diarrhea, unspecified; E78.5 Hyperlipidemia, unspecified; Z66 Do not resuscitate; R33.9 Retention of urine, unspecified